=== PATIENT | female | born 1995 | race Caucasian/White ===

== ENCOUNTER 2017-02-26 16:25 | Inpatient (IN) | payer BC, MEDICAID ==
[~2017-02-26] VITALS: Ht 167.6 cm; Wt 88.4 kg
[~2017-02-26 16:25] MED LIST: MOTRIN 600600 MG/TAB PO; NO HOME MEDICATIONS; NORCO 325 MG-7.1 TAB PO; PEPCID 20MG TAB20 MG PO; PERCOCET 325 MG1 TA2 PO; PRENATAL VITAMI1 T12 PO
[2017-04-18] VITALS (37 sets, daily range): BP systolic 111–134; BP diastolic 56–84; PULSE 64–96; TEMP 97.4–99
[2017-04-18 08:31] LABS: HEMATOCRIT 37.8 % (37.0-47.0); HEMOGLOBIN 12.9 g/dl (12.5-16.0); MEAN CELL VOLUME 89 fl (80.0-100.0); MEAN CORPUSCULAR HEMOGLOBIN 30 pg (27.0-31.0); MEAN CORPUSCULAR HGB CONC 34 g/dl (33.0-37.0); MEAN PLATELET VOLUME 12.7 fl (7.4-10.4); PLATELET COUNT 136 K/mm3 (130-400); RED BLOOD COUNT 4.26 M/mm3 (4.10-5.30); REDCELL DISTRIBUTION WIDTH-CV 12.6 % (11.5-14.5)
[2017-04-18 09:08] LABS: BAND 6 % (0-10); BASOPHIL 1 % (0-2); LYMPHOCYTE 10 % (20.0-51.0); NEUTROPHILS 74 % (42.0-75.2); PLATELET ESTIMATE DECREASED (NORMAL)
[2017-04-18 09:09] LABS: POLYCHROMASIA 1+
[2017-04-19 08:30] VITALS: BP 120/77; PULSE 98; TEMP 97.9
[2017-04-19 12:30] VITALS: BP 124/82; PULSE 86; TEMP 97.9
[2017-04-19 17:15] VITALS: BP 136/76; PULSE 65; TEMP 97.7
[2017-04-19 20:00] VITALS: BP 124/70; PULSE 80; TEMP 97.7
[2017-04-20 08:00] VITALS: BP 121/71; PULSE 88; TEMP 98.4
[2017-04-20] MEDS ORDERED: IBU600 MG PO (08:06)
[2017-04-20] MEDS ORDERED: PERCOCET 325 MG1 TA2 PO (08:06)
== END 2017-04-20 16:30 | disposition home or self-care (01) | DRG 775 ==
LOC: LDR 04-18 06:32 → OB 04-18 16:45 → EDSTATUS 04-23 06:31 → LDRO 04-23 16:24
PROVIDERS: Obstetrics & Gynecology
PROC: 10E0XZZ Delivery of Products of Conception, External Approach (ICD-10-PCS; principal; 2017-04-18)
PROC: 3E033VJ Introduction of Other Hormone into Peripheral Vein, Percutaneous Approach (ICD-10-PCS; 2017-04-18)
PROC: 0HQ9XZZ Repair Perineum Skin, External Approach (ICD-10-PCS; 2017-04-18)
DX: O36.0130 Maternal care for anti-D [Rh] antibodies, third trimester, not applicable or unspecified (principal); O99.824 Streptococcus B carrier state complicating childbirth; O70.0 First degree perineal laceration during delivery; Z3A.39 39 weeks gestation of pregnancy; Z37.0 Single live birth
CPT/HCPCS: J2540; J2590; J7060; J7120